=== PATIENT | female | born 1985 | race Two or more races ===

== ENCOUNTER 2018-05-01 12:34 | Emergency (ER) | payer OTHER ==
[~2018-05-01] VITALS: Ht 152.4 cm; Wt 98.9 kg
[2018-05-01] MEDS ORDERED: ACETAMINOPHEN 325 MG TABLET ONE (13:46)
[2018-05-01] MEDS ORDERED: ACETAMINOPHEN 325 MG TABLET PO ONE (14:00)
--- NOTE | 2018-05-01 14:11 | NUR ---
Patient discharged to home in stable condition. Written and verbal after care instructions given. Patient verbalizes understanding of instruction.
[2018-05-01 14:15] VITALS: BP 138/89
== END 2018-05-01 14:17 | disposition home or self-care (01) ==
LOC: ER 12:35
DX: F07.81 Postconcussional syndrome (principal); Z60.2 Problems related to living alone; V49.69XA Unspecified car occupant injured in collision with other motor vehicles in traffic accident, initial encounter; Y93.89 Activity, other specified; Y92.413 State road as the place of occurrence of the external cause; Y99.8 Other external cause status
CPT/HCPCS: 70450-TC

== ENCOUNTER 2018-07-22 16:48 | Emergency (ER) | payer OTHER ==
[~2018-07-22] VITALS: Ht 152.4 cm; Wt 86.6 kg
[2018-07-22 16:55] VITALS: BP 138/87
--- NOTE | 2018-07-22 17:47 | NUR ---
Patient discharged to home in stable condition. Written and verbal after care instructions given. Patient verbalizes understanding of instruction.
== END 2018-07-22 17:46 | disposition home or self-care (01) ==
LOC: ER 16:53
DX: G44.309 Post-traumatic headache, unspecified, not intractable (principal); F07.81 Postconcussional syndrome; Z91.018 Allergy to other foods; Z60.2 Problems related to living alone
CPT/HCPCS: Z7502